=== PATIENT | female | born 1965 | race Caucasian/White ===

== ENCOUNTER 2016-05-04 16:53 | Inpatient (IN) | payer OTHER ==
--- NOTE | 2016-05-04 17:09 | CPEKG ---
Heart Rate: 75 RR Interval: 800 P-R Interval: 136 QRSD Interval: 84 QT Interval: 376 QTC Interval: 420 P [place]: 55 QRS [place]: 49 T Wave [place]: 42 EKG Severity - NORMAL ECG - EKG Impression: SINUS RHYTHM Electronically Signed By: Sonu Landin 04-May-2016 20:16:23
[2016-05-04] MEDS ORDERED: ONDANSETRON 4 MG/2 ML VIAL ONE (17:14)
--- NOTE | 2016-05-04 17:30 | EDPHY ---
H & P Stated Complaint: Abd pain,bloating,nausea since 3am Time Seen by Provider: 05/04/16 17:30 - Personal History LMP (Females 10-55): Now Current Tetanus Diphtheria and Acellular Pertussis (TDAP): Yes - Medical/Surgical History Other PMH: appy L oophrectomy (teratoma) - Social History Smoking Status: Never smoked Constitutional: Initial Vital Signs Temperature (C) 37.1 C 05/04/16 16:57 Heart Rate 94 05/04/16 16:57 Respiratory Rate 18 05/04/16 16:57 Blood Pressure 153/88 H 05/04/16 16:57 O2 Sat (%) 97 05/04/16 16:57 O2 Delivery Mode Room Air Allergies/Adverse Reactions: No Known Allergies Allergy (Verified 05/04/16 16:56) Home Medications: Medication Instructions Recorded NK [No Known Home Meds] 05/04/16 Medical Decision Making ED Course/Re-evaluation: CHIEF COMPLAINT: Nausea vomiting abdominal pain HISTORY OF PRESENT ILLNESS: 50-year-old female who ate pizza last night and feels like she might have had some bad pizza. 3:00 a.m. she got nauseated. 7: 00 a.m. she started vomiting consistently throughout the day now she is vomiting bile. She has some reflux and some pain in her upper abdomen where the abdominal muscles insert on her sternum and ribs. She has no other symptoms including no fevers or chills no diarrhea. She feels like the pain is related to her vomiting as when she moves around it exacerbates the symptoms. REVIEW OF SYSTEMS: A 10 point review of systems was performed and is negative with the exception of the elements mentioned in the history of present illness. PHYSICAL EXAM: HR, BP, O2 Sat, RR. Temp noted General Appearance: Alert, well hydrated, appropriate, and non-toxic appearing. Head: Atraumatic without scalp tenderness or obvious injury Eyes: Pupils equal, round, reactive to light and accommodation, EOMI, no trauma , no injection. Ears: Clear bilaterally, no perforation, normal landmarks Nose: Atraumatic, no rhinorrhea, clear. Throat: There is no erythema or exudates, no lesions, normal tonsils, mucus membranes moist. Neck: Supple, 2+ carotid upstroke, nontender, no lymphadenopathy. Respiratory: No retractions, no distress, no wheezes, and no accessory muscle use. Lungs are clear to auscultation bilaterally. Cardiovascular: Regular rate and rhythm, no murmurs, rubs, or gallops. Bilateral carotid, radial, dorsalis pedis, and posterior tibial pulses intact. Good capillary refill all extremities. Gastrointestinal: Abdomen is soft, mild tenderness along the abdominal muscle insertion of the lower ribs and sternum, non-distended, no masses, no rebound, no guarding, no peritoneal signs. Musculoskeletal: Normal active ROM of all extremities, atraumatic. Neurological: Alert, appropriate, and interactive. The patient has normal DTRs and non-focal cranial nerves, motor, sensory, and cerebellar exam. Skin: No rashes, good turgor, no nodules on palpation. Past medical history: remote hypertriglyceridemia Past surgical history: Cholecystectomy, appendectomy, left oophorectomy Family history: Noncontributory Social history: , does not abuse tobacco drugs or alcohol, accompanied by and son DIAGNOSTICS/PROCEDURES/CRITICAL CARE TIME: No images required based on my exam. The 12 lead EKG was interpreted by myself. See hard copy and/or "tracemaster" electronic copy for interpretation. Sinus mechanism no ischemia Study: Ultrasound of the: Abdomen Indication: Pain Results: US scan of the abdomen was obtained. The results of the study are no stone, dilated bile duct consistent with post-cholecystectomy. The study was read by the radiologist, Dr. Jacobo. I viewed the images myself on the PACS system. DIFFERENTIAL DIAGNOSIS: The differential diagnosis for the patient's abdominal pain included but was not limited to abdominal muscle pain, gastroenteritis, diverticulitis, hernia. MEDICAL DECISION MAKING: This patient has history and exam consistent with gastroenteritis versus some sort of food poisoning. She really just has abdominal pain on the insertion of her abdominal muscles on the sternum and the ribs and she also has some reflux which is causing her a little bit of esophageal burning and back pain. This patient is doing much better with Zofran and Dilaudid. We will give her IV fluids. Will do a p. o. trial. She does not require imaging at this time as she has had her gallbladder, appendix out and she does not have a surgical abdomen. Lipase elevated indicating pancreatitis. She tells me she has a remote history of hypertriglyceridemia, though her last lipid check was normal. Abdominal US ordered. 1851: Spoke with Dr. Wilhelm, hospitalist. She accepts admission. - Data Points Laboratory Results: Laboratory Results 05/04/16 17:20 05/04/16 17:20 05/04/16 17:20 WBC 16.76 H 10^3/uL (3.80-9.50) RBC 4.29 10^6/uL (4.18-5.33) Hgb 14.5 g/dL (12.6-16.3) Hct 35.4 L % (38.0-47.0) MCV 82.5 fL (81.5-99.8) MCH 33.8 pg (27.9-34.1) MCHC 41.0 H g/dL (32.4-36.7) RDW 13.2 % (11.5-15.2) Plt Count 143 L 10^3/uL (150-400) MPV 12.4 H fL (8.7-11.7) Neut % (Auto) 91.0 H % (39.3-74.2) Lymph % (Auto) 3.8 L % (15.0-45.0) [place] % (Auto) 4.3 L % (4.5-13.0) Eos % (Auto) 0.1 L % (0.6-7.6) Baso % (Auto) 0.2 L % (0.3-1.7) Nucleat RBC Rel Count 0.1 % (0.0-0.2) Absolute Neuts (auto) 15.26 H 10^3/uL (1.70-6.50) Absolute Lymphs (auto) 0.63 L 10^3/uL (1.00-3.00) Absolute Monos (auto) 0.72 10^3/uL (0.30-0.80) Absolute Eos (auto) 0.01 L 10^3/uL (0.03-0.40) Absolute Basos (auto) 0.04 10^3/uL (0.02-0.10) Absolute Nucleated RBC 0.02 H 10^3/uL (0-0.01) Immature Gran % 0.6 % (0.0-1.1) Immature Gran # 0.10 10^3/uL (0.00-0.10) RBC/WBC/PLT Morphology NORMAL (NORMAL) Platelet Estimate DECREASED L (ADEQ) Sodium 128 L mEq/L (134-144) Potassium 4.9 mEq/L (3.5-5.2) Chloride 99 mEq/L (97-110) Carbon Dioxide 11 L mEq/l (22-31) Anion Gap 18 mEq/L (8-16) BUN 9 mg/dL (7-23) Creatinine 0.6 mg/dL (0.6-1.0) Estimated GFR > 60 Glucose 114 H mg/dL (70-100) Calcium 8.5 mg/dL (8.5-10.4) Total Bilirubin 2.3 H mg/dL (0.1-1.4) Conjugated Bilirubin 0.7 H mg/dL (0.0-0.5) Unconjugated Bilirubin 1.6 H mg/dL (0.0-1.1) AST 49 H IU/L (14-46) ALT 29 IU/L (9-52) Alkaline Phosphatase 95 IU/L (38-126) Total Protein 7.4 g/dL (6.3-8.2) Albumin 3.2 L g/dL (3.5-5.0) Lipase 3551.0 H IU/L (23-300) Medications Given: Discontinued Medications Hydromorphone HCl (Dilaudid) 1 mg IVP EDNOW ONE Stop: 05/04/16 17:41 Last Admin: 05/04/16 18:56 Dose: 1 mg Sodium Chloride (Ns) 1,000 mls @ 0 mls/hr IV ONCE ONE PRN Reason: Wide Open Stop: 05/04/16 17:41 Last Admin: 05/04/16 18:35 Dose: 1,000 mls Sodium Chloride (Ns) 1,000 mls @ 0 mls/hr IV ONCE ONE PRN Reason: Wide Open Stop: 05/04/16 17:41 Last Admin: 05/04/16 17:45 Dose: 1,000 mls Famotidine/Sodium Chloride (Pepcid 20 Mg (Premix)) 50 mls @ 200 mls/hr IV EDNOW ONE Stop: 05/04/16 17:54 Last Admin: 05/04/16 18:00 Dose: 50 mls Ondansetron HCl (Zofran) 4 mg IVP EDNOW ONE Stop: 05/04/16 17:41 Last Admin: 05/04/16 17:45 Dose: 4 mg Departure - Departure Disposition: [facility] Inpatient Acute Clinical Impression: Pancreatitis Condition: Fair
[2016-05-04] MEDS ORDERED: HYDROmorphONE/DILAUDID 1 MG/ML SYR ONE (17:34)
[2016-05-04] MEDS ORDERED: HYDROmorphONE/DILAUDID 1 MG/ML SYR IVP ONE (17:40)
[2016-05-04] MEDS ORDERED: FAMOTIDINE 20 MG/NACL 50 ML IV ONE (17:40)
[2016-05-04] MEDS ORDERED: ONDANSETRON 4 MG/2 ML VIAL IVP ONE (17:40)
[2016-05-04] MEDS ORDERED: NS 1,000 ML IV ONE ×2 (17:40)
[2016-05-04 17:58] LABS: ALANINE AMINOTRANSFERASE 29 IU/L (9-52); ALBUMIN 3.2 g/dL (3.5-5.0); ALKALINE PHOSPHATASE 95 IU/L (38-126); ANION GAP 18 mEq/L (8-16); ASPARTATE AMINOTRANSFERASE 49 IU/L (14-46); BILIRUBIN,TOTAL 2.3 mg/dL (0.1-1.4); BILIRUBIN-CONJUGATED 0.7 mg/dL (0.0-0.5); BILIRUBIN-UNCONJUGATED 1.6 mg/dL (0.0-1.1); CALCIUM 8.5 mg/dL (8.5-10.4); CARBON DIOXIDE 11 mEq/l (22-31); CHLORIDE 99 mEq/L (97-110); CREATININE 0.6 mg/dL (0.6-1.0); GLOMERULAR FILTRATION RATE > 60; GLUCOSE 114 mg/dL (70-100); POTASSIUM 4.9 mEq/L (3.5-5.2); SODIUM 128 mEq/L (134-144); TOTAL PROTEIN 7.4 g/dL (6.3-8.2)
[2016-05-04 18:28] LABS: % IMMATURE GRANULYOCYTES 0.6 % (0.0-1.1); ABSOLUTE NRBC COUNT 0.02 10^3/uL (0-0.01); ADD DIFF? NO; ADD MORPH? YES; ADD SCAN? NO; ATYPICAL LYMPHOCYTE FLAG 0 (0-99); FRAGMENT RBC FLAG 0 (0-99); HEMATOCRIT 35.4 % (38.0-47.0); HEMOGLOBIN 14.5 g/dL (12.6-16.3); LEFT SHIFT FLG 0 (0-99); MEAN CELL HEMOGLOBIN 33.8 pg (27.9-34.1); MEAN CELL VOLUME 82.5 fL (81.5-99.8); MEAN PLATELET VOLUME 12.4 fL (8.7-11.7); NRBC-AUTO% 0.1 % (0.0-0.2); PLATELET CLUMPS FLAG 10 (0-99); PLATELET COUNT 143 10^3/uL (150-400); RED BLOOD CELL COUNT 4.29 10^6/uL (4.18-5.33); RED CELL DISTRIBUTION WIDTH 13.2 % (11.5-15.2)
[2016-05-04 18:36] LABS: LIPEMIA HEMOLYSIS FLAG 100 (0-99)
[2016-05-04 18:55] LABS: PLATELET ESTIMATE DECREASED (ADEQ)
[2016-05-04 19:16] LABS: HIGH DENSITY LIPOPROTEIN 34 mg/dL (40-85)
[2016-05-04] MEDS ORDERED: ACETAMINOPHEN 325 MG TAB PO PRN (19:42)
[2016-05-04] MEDS ORDERED: ONDANSETRON DISINTEGRATING 4 MG TAB PO PRN (19:42)
[2016-05-04 19:45] LABS: CHOLESTEROL 647 mg/dL (140-220); CHOLESTEROL/HDL RATIO 19.03 RATIO (1.00-4.44); NON-HIGH DENSITY LIPOPROTEIN 613 mg/dL (90-129)
[2016-05-04 19:46] LABS: TRIGLYCERIDE > 3000 mg/dL (35-135)
[2016-05-04 20:01] LABS: MAGNESIUM 1.2 mg/dL (1.6-2.3)
[2016-05-04] MEDS: ONDANSETRON 4 MG/2 ML VIAL IVP PRN (20:07)
--- NOTE | 2016-05-04 20:24 | US ---
Complete Abdominal Sonogram - May 04, 2016 Indication: Pancreatitis. Previous cholecystectomy. Findings: The enlarged liver, measuring 19.7 cm in the midaxillary line, has increased echogenicity a nd homogeneous echotexture. No sonographic mass or biliary dilation. The gallbladder is surgically absent. The visualized common bile duct is minimally dilated (7 to 8 mm ), which may be within normal limits for the postcholecystectomy state. No intraluminal shadowing sto sylvie. Portal vein is patent. The inferior vena cava is normal caliber. The abdominal aorta is normal calibe r. The kidneys are unremarkable with no hydronephrosis. The right kidney measures 10.4 cm in length x 5 x 4.7 cm axially. The left kidney measures 10.3 cm in length x 4.9 x 4.8 cm axially. No free fluid. The imaged portions of the pancreatic neck, head, and central body are normal. No jaclyn pancreatic fluid collection. Spleen is upper normal size measuring 12.7 x 10.8 x 6.1 cm (splenic inde x of 435). The pancreatic tail is obscured by bowel gas. Impression: 1. Minimal dilated common bile duct may be within normal limit for the postcholecystectomy state. No evidence of common bile duct stone. 2. Hepatic steatosis and mild hepatomegaly. 3. No free fluid. Comment: Results were discussed with Dr. Sonu Landin at 8:15 p.m. on May 04, 2016.
[2016-05-04] MEDS ORDERED: HYDROmorphONE/DILAUDID 1 MG/ML SYR IVP PRN (20:48)
[2016-05-04] MEDS ORDERED: MAGNESIUM SULF 2 GM/WATER 50 ML IV ONE (23:06)
[2016-05-04] MEDS: MAGNESIUM SULF 2 GM/WATER 50 ML IV SCH (23:29)
--- NOTE | 2016-05-05 00:04 | GHP ---
[f rep st] HISTORY AND PHYSICAL DATE OF ADMISSION: 05/04/2016 CHIEF COMPLAINT: Pancreatitis. HISTORY OF PRESENT ILLNESS: Patient is a 50-year-old female with no significant past medical history presenting with abdominal pain and vomiting since this morning. She ate pizza yesterday and felt an unsettled stomach, went to bed thinking symptoms would improve. She awoke this morning at 7 a.m. with nonbloody emesis approximately 6-7 times. She has had no diarrhea; actually, had a normal bowel movement yesterday. Denies fevers, chills, or sweats. No cough, no shortness of breath. Pain is crampy in nature and improved after emesis. Pain is currently 4/10. Denies dysuria. Has had intermittent headache. Reports having a history of hypertriglyceridemia. Has had her gallbladder removed. Recently in [place] over [place]. Denies eating anything out of the ordinary for her. REVIEW OF SYSTEMS: I completed a 10-point review of systems, negative except as noted in HPI. PAST MEDICAL HISTORY: None. PAST SURGICAL HISTORY: 2 vaginal births; cholecystectomy, age 28; appendectomy , June 2015; left ovary removed secondary to a teratoma. SOCIAL HISTORY: Lives with her . No alcohol, tobacco, or illicits. FAMILY HISTORY: Mother and sister with breast cancer. MEDICATIONS: Aspirin. ALLERGIES: No known drug allergies. PHYSICAL EXAM: VITAL SIGNS: Temperature 37, blood pressure 158/88, heart rate 90-101, respirations 18, 90% on room air, 94 on 2 L. General: Patient appears younger than stated age. Lying in bed fatigued, but no acute distress. HEENT: PERRLA, EOMI. Dry mucous membranes. Oropharynx clear. CV: Regular rate and rhythm. No murmurs, gallops, or rubs. LUNGS: Clear to auscultation. No crackles or wheezes. ABDOMEN: Diffusely tender throughout, specifically in epigastrium. No rebound or guarding. Quiet bowel sounds throughout. : No suprapubic or CVA tenderness. MUSCULOSKELETAL: 5/5 upper/lower extremity strength. NEURO: /12 intact. No focal deficits. PSYCH: Alert and oriented x3. LABS: WBC 16, hemoglobin 14, hematocrit 35, platelets 143. Sodium was 128, potassium 4.9, chloride 99, carbon dioxide 11, gap 18, creatinine 0.6, glucose 114, total bilirubin 2.3, conjugated bilirubin 0.7, unconjugated 1.6, AST 49, ALT 29, albumin 3.2. Triglycerides greater than 3000. Cholesterol 647, non-HDL 613, HDL 34, lipase 3551, phos 3.1, magnesium 1.2. Abdominal ultrasound: Minimal dilated common bile duct may be within normal limits for postcholecystectomy. No evidence of common bile duct stone. Hepatic steatosis and mild hepatomegaly. No free fluid. EKG personally reviewed by me. Normal sinus rhythm. No ST elevation depression. ASSESSMENT AND PLAN: 1. Acute abdominal pain: secondary to pancreatitis with an elevated lipase greater than 3000. No evidence of ascites on ultrasound. 2. Acute pancreatitis: due to hypertriglyceridemia: Triglycerides greater than 3000, cholesterol 647. Patient with a history of cholecystectomy. No evidence of stones on ultrasound. Will treat supportively with IV fluids, IV opioids, and IV antiemetics. Patient will need treatment with gemfibrozil and statin, once tolerating p.o. intake. Will also evaluate TSH and urinalysis, as thyroid disease and nephrotic syndrome can be associated with triglyceridemia. Will discuss case with Gastroenterology in the morning. 3. Hypomagnesium: Replete. 4. Hypovolemic hyponatremia secondary to emesis and decreased p.o. intake: Will give IV fluids. 5. Metabolic anion gap acidosis, likely secondary to starvation ketoacidosis: We are giving IV fluids. 6. Hyperbilirubinemia: Ultrasound without evidence of overt stones. 7. Leukocytosis, likely secondary to stress inflammation, given acute process: There is no evidence of abscess or free fluid on ultrasound. Will also check a UA, provide IV fluids, and repeat in the morning. 8. Diet: NPO. 9. DVT prophylaxis: Low molecular weight heparin. DISPOSITION: Patient warrants inpatient admission, given acute abdominal pain secondary to pancreatitis, requiring IV fluids, opioids, and antiemetics. /[id number]/MODL MTDD
[2016-05-05] MEDS: MAGNESIUM SULF 2 GM/WATER 50 ML IV SCH (00:55)
[2016-05-05] MEDS: ONDANSETRON 4 MG/2 ML VIAL IVP PRN ×5 (01:11→20:21)
[2016-05-05] MEDS: HYDROmorphONE/DILAUDID 1 MG/ML SYR IVP PRN ×9 (01:22→23:40)
[2016-05-05 03:51] LABS: COLOR YELLOW; LEUKOCYTE ESTERASE,URINE NEGATIVE (NEGATIVE); NITRITE,URINE POSITIVE (NEGATIVE)
[2016-05-05 03:59] LABS: BACTERIA 1+ /hpf (NONE SEEN); MUCUS 1+ /lpf (NONE-1+)
[2016-05-05 06:44] LABS: ALANINE AMINOTRANSFERASE 30 IU/L (9-52); ALBUMIN 2.8 g/dL (3.5-5.0); ALKALINE PHOSPHATASE 75 IU/L (38-126); ANION GAP 15 mEq/L (8-16); ASPARTATE AMINOTRANSFERASE 23 IU/L (14-46); BILIRUBIN,TOTAL 1.6 mg/dL (0.1-1.4); CALCIUM 6.4 mg/dL (8.5-10.4); CARBON DIOXIDE 14 mEq/l (22-31); CHLORIDE 102 mEq/L (97-110); CREATININE 0.7 mg/dL (0.6-1.0); GLOMERULAR FILTRATION RATE > 60; GLUCOSE 154 mg/dL (70-100); POTASSIUM 3.7 mEq/L (3.5-5.2); SODIUM 131 mEq/L (134-144); TOTAL PROTEIN 5.7 g/dL (6.3-8.2)
[2016-05-05] MEDS: D5W NS 1,000 ML IV SCH ×2 (08:24→16:21)
[2016-05-05 08:31] LABS: HEMATOCRIT 32.1 % (38.0-47.0); HEMOGLOBIN 11.6 g/dL (12.6-16.3); MEAN CELL HEMOGLOBIN 30.1 pg (27.9-34.1); MEAN CELL HEMOGLOBIN CONCENTR. 36.1 g/dL (32.4-36.7); MEAN CELL VOLUME 83.4 fL (81.5-99.8); RED BLOOD CELL COUNT 3.85 10^6/uL (4.18-5.33); RED CELL DISTRIBUTION WIDTH 13.4 % (11.5-15.2)
[2016-05-05] MEDS ORDERED: PROTOCOL K PHOSPHATE 1 DOSE IV PRN (09:29)
[2016-05-05] MEDS ORDERED: PROTOCOL MAGNESIUM 1 DOSE IV PRN (09:55)
[2016-05-05] MEDS ORDERED: D50W 25 GM/50 ML SYR IVP PRN (09:56)
[2016-05-05] MEDS: GEMFIBROZIL 600 MG TAB PO SCH ×2 (10:52→18:00)
[2016-05-05] MEDS: INSULIN REGULAR HUMAN 100 UNIT/ML SC SCH ×3 (12:40→21:18)
[2016-05-05] MEDS: HEPARIN 5,000 UNIT/0.5 ML SYR SC SCH ×2 (13:49→21:22)
--- NOTE | 2016-05-05 14:39 | HOSPPROG ---
Hospitalist Progress Note Assessment/Plan: * Acute pancreatitis due to hypertriglyceridemia -still lots of pain - advance only to sips/chips -increase IV Dilaudid * Hypertriglyceridemia -apheresis/TPE recommended for severe pancreatitis -no evidence for end organ damage - but consider TPE if worsens -also evidence for benefit from insulin/glucose to decrease TG -D5 + insulin SS -some evidence for use of heparin -SQ heparin -goal to bring TG < 500 acutely -start gemfibrozil -statin intolerant - severe myalgia (has tried 3 different statins in past) -recommend endocrinology follow-up as outpatient * SIRS due to pancreatitis - leukocytosis/tachycardia -O2 requirement increasing - check CXR -suspect poor inspiration due to abdominal pain Subjective: Pain is better but with severe LUQ persisting. Can't take deep breaths unless she gets IV dilaudid. No interest in taking PO Objective: Vital Signs Temp Pulse Resp BP Pulse Ox 37.2 C 94 18 106/66 90 L 05/05/16 08:18 05/05/16 12:23 05/05/16 12:23 05/05/16 12:23 05/05/16 12:23 Laboratory Results 05/05/16 04:58 05/05/16 04:58 ABD US: negative - Physical Exam Constitutional: no apparent distress, appears nourished, not in pain Cardiovascular: regular rate and rhythym, no murmur, rub, or gallop Respiratory: no respiratory distress, no rales or rhonchi, clear to auscultation Gastrointestinal: tenderness, distension, No ascites, No guarding, No rebound Skin: no rashes or abrasions, no fluctuance, no induration Neurologic: AAOx3, sensation intact bilaterally Psychiatric: interacting appropriately, not anxious, not encephalopathic, thought process linear ICD10 Worksheet Patient Problems: Problems Problem Status Diagnosed Pancreatitis Acute
[2016-05-06] MEDS: D5W NS 1,000 ML IV SCH ×3 (02:48→21:02)
[2016-05-06] MEDS: HYDROmorphONE/DILAUDID 1 MG/ML SYR IVP PRN ×9 (02:49→22:08)
[2016-05-06] MEDS: ONDANSETRON 4 MG/2 ML VIAL IVP PRN ×5 (02:49→19:53)
[2016-05-06 05:05] LABS: % IMMATURE GRANULYOCYTES 0.9 % (0.0-1.1); ABSOLUTE IMMATURE GRANULOCYTES 0.11 10^3/uL (0.00-0.10); ADD DIFF? NO; ADD MORPH? NO; ADD SCAN? NO; ATYPICAL LYMPHOCYTE FLAG 0 (0-99); FRAGMENT RBC FLAG 0 (0-99); HEMATOCRIT 33.6 % (38.0-47.0); HEMOGLOBIN 11.9 g/dL (12.6-16.3); LEFT SHIFT FLG 50 (0-99); LIPEMIA HEMOLYSIS FLAG 90 (0-99); MEAN CELL HEMOGLOBIN 30.5 pg (27.9-34.1); MEAN CELL HEMOGLOBIN CONCENTR. 35.4 g/dL (32.4-36.7); MEAN CELL VOLUME 86.2 fL (81.5-99.8); MEAN PLATELET VOLUME 11.1 fL (8.7-11.7); PLATELET CLUMPS FLAG 0 (0-99); PLATELET COUNT 176 10^3/uL (150-400)
[2016-05-06 05:17] LABS: ALANINE AMINOTRANSFERASE 27 IU/L (9-52); ALBUMIN 2.5 g/dL (3.5-5.0); ALKALINE PHOSPHATASE 66 IU/L (38-126); ANION GAP 6 mEq/L (8-16); ASPARTATE AMINOTRANSFERASE 27 IU/L (14-46); BILIRUBIN,TOTAL 1.8 mg/dL (0.1-1.4); BILIRUBIN-CONJUGATED 0.5 mg/dL (0.0-0.5); BILIRUBIN-UNCONJUGATED 1.3 mg/dL (0.0-1.1); CARBON DIOXIDE 20 mEq/l (22-31); CHLORIDE 106 mEq/L (97-110); CREATININE 0.7 mg/dL (0.6-1.0); GLOMERULAR FILTRATION RATE > 60; GLUCOSE 145 mg/dL (70-100); HIGH DENSITY LIPOPROTEIN 41 mg/dL (40-85); MAGNESIUM 2.3 mg/dL (1.6-2.3); POTASSIUM 3.9 mEq/L (3.5-5.2); SODIUM 132 mEq/L (134-144); TOTAL PROTEIN 5.3 g/dL (6.3-8.2)
[2016-05-06] MEDS: HEPARIN 5,000 UNIT/0.5 ML SYR SC SCH ×3 (06:33→22:06)
[2016-05-06 06:54] LABS: CHOLESTEROL 567 mg/dL (140-220); CHOLESTEROL/HDL RATIO 13.83 RATIO (1.00-4.44); NON-HIGH DENSITY LIPOPROTEIN 526 mg/dL (90-129); TRIGLYCERIDE 1560 mg/dL (35-135)
[2016-05-06 06:57] LABS: CALCIUM 5.7 mg/dL (8.5-10.4)
[2016-05-06] MEDS: INSULIN REGULAR HUMAN 100 UNIT/ML SC SCH (08:00)
[2016-05-06] MEDS: GEMFIBROZIL 600 MG TAB PO SCH ×2 (08:01→17:35)
--- NOTE | 2016-05-06 08:13 | DX ---
Portable chest x-ray 0620 hours. History: Hypoxia. Findings: There is poor inspiration with compressive changes at the lung bases left side more than ri ght. Rule out superimposed infiltrate/pneumonia or dependent edema. The mid and upper lungs are relat ively clear. There is no pneumothorax or significant effusion. Heart size is upper limits of normal. Pulmonary vasculature is not significant engorged. Osseous structures appear to be intact. Impression: 1. Poor inspiration with compressive changes at the lung bases left side more than right. Rule out fernando perimposed consolidation/pneumonia especially at the left lung base. Rule out dependent edema possibl y from fluid overload.
[2016-05-06] MEDS ORDERED: CALCIUM GLUCONATE 2 GM in D5W 50 ML IV ONE (08:14)
[2016-05-06] MEDS ORDERED: PROTOCOL CALCIUM 1 DOSE IV PRN (08:14)
[2016-05-06 08:38] LABS: IONIZED CALCIUM 0.85 MMOL/L (1.12-1.30)
[2016-05-06] MEDS ORDERED: INSULIN REGULAR HUMAN 100 UNIT in NS 100 ML IV SCH (09:00)
--- NOTE | 2016-05-06 09:07 | CPEKG ---
Heart Rate: 104 RR Interval: 577 P-R Interval: 144 QRSD Interval: 88 QT Interval: 344 QTC Interval: 453 P [place]: 43 QRS [place]: 32 T Wave [place]: 15 EKG Severity - OTHERWISE NORMAL ECG - EKG Impression: SINUS TACHYCARDIA Electronically Signed By: Eliel Estrada 06-May-2016 09:09:02
--- NOTE | 2016-05-06 09:18 | HOSPPROG ---
Hospitalist Progress Note Assessment/Plan: ASSESSMENT/PLAN: # acute pancreatitis due to hypertriglyceridemia - supportive care including IV fluids, pain control, keep NPO # critical hypocalcemia - repleting aggressively; fortunately she is not symptomatic - check ionized calcium - also very low - placed on telemetry, check ECG - personally reviewed, no QT prolongation - will be more aggressive treating pancreatitis - check Q4H, check PTH - if she becomes symptomatic, will strongly consider apheresis # severe hypertriglyceridemia - discussed with Dr Escalona - start IV insulin - continue gemfibrozil, start IV insulin (will need to move to the ICU), continue D5 normal saline - continue subcu heparin # hypoxia: Due to abdominal distention, decreased diaphragmatic excursion - follow closely SUBJECTIVE: Ongoing abdominal pain; notified of critical hypocalcemia OBJECTIVE: Vitals reviewed Comfortable, no acute distress Regular rate and rhythm, no murmurs rubs or gallops No respiratory distress, lungs clear to auscultation bilaterally; no wheezes rales or rhonchi Abdomen normal bowel sounds, soft, moderate to severely tender to palpation in the left upper quadrant Negative Chvostek's sign LABORATORY DATA: Triglycerides 1500; calcium 5.7; albumin 2.5 IMAGING: Chest x-ray with compressive atelectasis MICROBIOLOGY: None GOVERNMENT PROFESSOR: - place on monitor Objective: Vital Signs Temp Pulse Resp BP Pulse Ox 37.4 C 100 16 108/62 92 05/06/16 07:29 05/06/16 07:29 05/06/16 07:29 05/06/16 07:29 05/06/16 07:29 Laboratory Results 05/06/16 04:47 05/06/16 04:47 05/05/16 05/06/16 05/07/16 05:59 05:59 05:59 Output Total 300 Balance -300 ICD10 Worksheet Patient Problems: Problems Problem Status Diagnosed Pancreatitis Acute
[2016-05-06 09:19] LABS: PTH INTACT NO MINERALS 344.8 pg/ml (10.8-79.4)
--- NOTE | 2016-05-06 11:52 | GCON ---
[f rep st] [facility]SULTATION [facility]. DATE OF CONSULTATION: 05/06/2016 REASON FOR ADMISSION: Pancreatitis and severe hypocalcemia. HISTORY OF PRESENT ILLNESS: Ms. Engel is an extremely pleasant 50-year-old female with a past medical history of hypertriglyceridemia. She presented to the emergency room and was admitted on 05/04/2016, with abdominal pain and vomiting. She was diagnosed with pancreatitis and admitted. HOSPITAL COURSE: Over the course of her hospitalization, she made some improvement. Her pain is bet ter-controlled. However, she is found to be severely hypocalcemic. She was subsequently transferred to the Intensive Care Unit. Currently, she is resting comfortably. She denies any chest pain, pleuritic-type chest pain or angin a equivalent. No cough or production of sputum. No fever or night sweats. Her abdominal pain is ag ain somewhat controlled. PAST MEDICAL HISTORY: Significant for hypertriglyceridemia. ALLERGIES: None known to medications. SOCIAL HISTORY: Lifelong never smoker. No alcohol use. No illicit drugs. She has good family supp ort. MEDICATIONS: Aspirin. PHYSICAL EXAM: VITAL SIGNS: Blood pressure 108/62, pulse 100, respirations 16, temperature 37.4, ox ygen saturation 92% on 3 L. GENERAL: She is a mildly overweight 50-year-old female who is resting comfortably and in no acute distress. HEENT: Eyes are [place] EOMI. Throat shows no erythema o r tonsillar hypertrophy. NECK: Supple. No cervical adenopathy. HEART: Regular rate and rhythm wi thout murmurs, rubs, gallops. LUNGS: Clear to auscultation. No wheeze or rhonchi. ABDOMEN: Soft, mildly tender. Bowel sounds are present. EXTREMITIES: No clubbing, cyanosis, or edema. LABORATORIES: White count 12.6, hemoglobin 11, hematocrit 33, platelet count is 176. Sodium 132, po tassium 3.9, chloride 106, CO2 20. BUN 9, creatinine 0.7, glucose 145, calcium 5.7, phosphorus 2.1. AST and ALT are 27 each. Triglyceride level is 1560, which is improved. PTH is 344. Urinalysis: p H 5, specific gravity 1.020. IMPRESSION: 1. Hypertriglyceridemia. 2. Acute pancreatitis due to the hypertriglyceridemia. 3. Severe hypocalcemia. 4. Mild dyspnea. RECOMMENDATIONS: 1. I agree with transfer to the Intensive Care Unit. 2. Follow calcium closely. 3. We will start IV insulin. 4. DVT and PE prophylaxis. 5. Stress ulcer prophylaxis. 6. Adequate pain control. /[id number]/MODL
[2016-05-06] MEDS ORDERED: D10W 1,000 ML IV SCH (12:00)
[2016-05-06] MEDS ORDERED: K PHOS 10 MMOL in D5W 250 ML IV ONE (12:00)
[2016-05-06 12:33] LABS: IONIZED CALCIUM 1.01 MMOL/L (1.12-1.30)
[2016-05-06] MEDS ORDERED: CALCIUM GLUCONATE 50 ML IV ONE ×3 (13:52→20:27)
[2016-05-06 16:00] LABS: IONIZED CALCIUM 1.03 MMOL/L (1.12-1.30)
--- NOTE | 2016-05-06 18:14 | GCON ---
[f rep st] CONSULTATION ENDOCRINOLOGY CONSULTATION REFERRING PHYSICIAN: Zain Munguia MD REASON FOR CONSULTATION: Triglyceride-induced pancreatitis. HISTORY OF PRESENT ILLNESS: Ms. Engel is a 50-year-old woman with a history of high triglycerides, who was admitted 2 days ago with acute pancreatitis. She reports feeling well in general with good energy and stable weight. She has a history of high triglycerides as high as 1200 in the past. She was treated with several statin medications, which were discontinued because of muscle pain. She also took Lovaza for a time, which was discontinued because of lymphedema. More recently, she has been able to control it with diet and reports triglyceride level is approximately 300. She does state that over the holidays she was not stringent with her diet and ate more simple carbohydrates and fatty foods. The night before admission, she had pizza and later that night developed nausea and vomiting. Ultimately, she developed epigastric pain radiating up into her sternum and sought emergency care. She described the pain as 10/10. Upon admission, she was found to have acute pancreatitis with lipase 3551 and triglycerides above 3000. Her initial calcium level was 8.5 with albumin 3.2, and she has had normal creatinine 0.7 and normal thyroid function, TSH 0.501, during this admission. Glucose levels have ranged 100-190 on fingerstick. She has been treated with n.p.o. aside from ice chips and with pain medication, and currently rates pain as a level 5/10. She has not had recent nausea or vomiting. Earlier today, she was found to have serum calcium 5.7 width albumin 2.5. She has been treated with IV calcium and ionized calcium has increased from 0.85 up to 1.03 millimoles/L. She does not report low calcium symptoms currently. She has never had diagnosis of diabetes. She does not drink alcohol. She has not had prior thyroid disease. She has not had prior cardiovascular disease. She has not a history of xanthomas/xanthomata. PAST MEDICAL HISTORY: 1. Hypertriglyceridemia. 2. Ovarian teratoma, unilateral oophorectomy. ALLERGIES: Lovaza as above. ADMISSION MEDICATIONS: Aspirin 81 mg occasionally. FAMILY HISTORY: Her brother has significant hypertriglyceridemia. SOCIAL HISTORY: She has a significant other and 2 children. No grandchildren. 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 She does not smoke or use alcoholic beverages. REVIEW OF SYSTEMS: As per HPI. Otherwise, review of systems negative. PHYSICAL EXAM: VITAL SIGNS: Temperature 36.5, heart rate 96, respiratory rate 16, blood pressure 112/64. GENERAL: She appears well and answers questions appropriately. HEENT: Extraocular movements are intact. There is no lid lag. NECK: The thyroid gland is normal sized to anterior palpation. The neck is supple. LUNGS: Clear to auscultation. HEART: Regular. ABDOMEN: Slightly tender and distended with positive bowel sounds. EXTREMITIES: Trace edema. Distal pulses are excellent. NEUROLOGIC: Mood and affect are normal. Judgement is normal. SKIN: Warm and dry. There are no stigmata of hypercholesterolemia or hypertriglyceridemia. LABS: As above. Hospital labs reviewed. IMPRESSION: 1. Pancreatitis. 2. Hypertriglyceridemia. 3. Hypocalcemia. She presents with pancreatitis, presumably caused by hypertriglyceridemia. She had very high triglycerides on admission, which have decreased but still remain above 500. She appears to be recovering well from her pancreatitis. She currently looks quite comfortable and is not toxic. She has not demonstrated evidence of end-organ dysfunction, but she has had prominent hypocalcemia with corrected calcium levels as low as 6.9. Those have improved with correction. We reviewed that severe hypertriglyceridemia usually arises in people with a genetic predisposition, then coupled with a second event, such as development of diabetes, significant alcohol intake, hypothyroidism, etc. For her, there is no clear secondary event other than perhaps dietary indiscretion around the holidays. I would like to check hemoglobin A1c. For her, the acute goal will be to lower triglyceride levels below 500. She is now receiving gemfibrozil, subcutaneous heparin, and IV insulin. She has not had prominent hypoglycemia, so if needed there is room to increase the rate of insulin infusion, currently 1 unit/hr, and then increase the rate of D5 infusion if needed to avoid hypoglycemia. I think we can check triglycerides in the morning and reassess. As she does appear to be clinically quite well, I do not think there is an urgent need to explore aphaeresis or plasma exchange at this point, but those are certainly options if she has clinical deterioration. Hypocalcemia is almost certainly the result of the pancreatitis and will resolve as her pancreatitis resolves. Ok to continue calcium replacement as needed. RECOMMENDATIONS: 1. Continue IV insulin, gemfibrozil. 2. N.p.o. Start low-fat diet when she is able to eat. 3. Check hemoglobin A1c, triglycerides, calcium in the morning. 4. She will need Endocrinology followup after discharge. Thank you for this consultation. /[id number]/MODL MTDD
[2016-05-06 20:09] LABS: IONIZED CALCIUM 0.99 MMOL/L (1.12-1.30)
[2016-05-07] MEDS: ONDANSETRON 4 MG/2 ML VIAL IVP PRN ×6 (00:19→21:23)
[2016-05-07] MEDS: HYDROmorphONE/DILAUDID 1 MG/ML SYR IVP PRN ×9 (00:19→21:23)
[2016-05-07 00:38] LABS: IONIZED CALCIUM 1.03 MMOL/L (1.12-1.30)
[2016-05-07 00:44] LABS: POTASSIUM 3.9 mEq/L (3.5-5.2)
[2016-05-07] MEDS ORDERED: CALCIUM GLUCONATE 50 ML IV ONE ×4 (00:51→15:16)
[2016-05-07] MEDS: HEPARIN 5,000 UNIT/0.5 ML SYR SC SCH ×3 (05:03→21:30)
[2016-05-07] MEDS: D5W NS 1,000 ML IV SCH ×3 (05:03→20:19)
[2016-05-07 05:05] LABS: IONIZED CALCIUM 1.01 MMOL/L (1.12-1.30)
[2016-05-07 05:29] LABS: % IMMATURE GRANULYOCYTES 0.7 % (0.0-1.1); ABSOLUTE IMMATURE GRANULOCYTES 0.07 10^3/uL (0.00-0.10); ADD DIFF? NO; ADD MORPH? NO; ADD SCAN? NO; ATYPICAL LYMPHOCYTE FLAG 0 (0-99); FRAGMENT RBC FLAG 0 (0-99); HEMATOCRIT 31.9 % (38.0-47.0); HEMOGLOBIN 10.8 g/dL (12.6-16.3); LEFT SHIFT FLG 10 (0-99); LIPEMIA HEMOLYSIS FLAG 90 (0-99); MEAN CELL HEMOGLOBIN 29.3 pg (27.9-34.1); MEAN CELL HEMOGLOBIN CONCENTR. 33.9 g/dL (32.4-36.7); MEAN CELL VOLUME 86.4 fL (81.5-99.8); MEAN PLATELET VOLUME 11.2 fL (8.7-11.7); PLATELET CLUMPS FLAG 0 (0-99); PLATELET COUNT 164 10^3/uL (150-400); RED BLOOD CELL COUNT 3.69 10^6/uL (4.18-5.33); RED CELL DISTRIBUTION WIDTH 14.4 % (11.5-15.2)
[2016-05-07 05:40] LABS: ALANINE AMINOTRANSFERASE 30 IU/L (9-52); ALBUMIN 2.5 g/dL (3.5-5.0); ALKALINE PHOSPHATASE 84 IU/L (38-126); ANION GAP 7 mEq/L (8-16); ASPARTATE AMINOTRANSFERASE 15 IU/L (14-46); BILIRUBIN,TOTAL 1.7 mg/dL (0.1-1.4); CALCIUM 7.1 mg/dL (8.5-10.4); CARBON DIOXIDE 23 mEq/l (22-31); CHLORIDE 105 mEq/L (97-110); CREATININE 0.7 mg/dL (0.6-1.0); GLOMERULAR FILTRATION RATE > 60; GLUCOSE 116 mg/dL (70-100); HIGH DENSITY LIPOPROTEIN 42 mg/dL (40-85); MAGNESIUM 2.1 mg/dL (1.6-2.3); POTASSIUM 3.8 mEq/L (3.5-5.2); SODIUM 135 mEq/L (134-144)
[2016-05-07 05:50] LABS: CHOLESTEROL 458 mg/dL (140-220); NON-HIGH DENSITY LIPOPROTEIN 416 mg/dL (90-129); TRIGLYCERIDE 1031 mg/dL (35-135)
[2016-05-07] MEDS: GEMFIBROZIL 600 MG TAB PO SCH ×2 (06:46→17:08)
[2016-05-07 10:49] LABS: IONIZED CALCIUM 1.12 MMOL/L (1.12-1.30)
[2016-05-07 11:48] LABS: HEMOGLOBIN A1C 5.5 % (4.0-6.0)
[2016-05-07] MEDS ORDERED: K PHOS 10 MMOL in D5W 250 ML IV ONE (12:00)
--- NOTE | 2016-05-07 13:25 | HOSPPROG ---
Hospitalist Progress Note Assessment/Plan: ASSESSMENT/PLAN: # acute pancreatitis due to hypertriglyceridemia - possibly advance diet tomorrow - supportive care including IV fluids, IV narcotics, keep NPO # critical hypocalcemia - resolved with repletion # severe hypertriglyceridemia - better today; intolerant of statins - continue IV insulin, gemfibrozil, D5 normal saline, subcu heparin # hypoxia: Due to abdominal distention, decreased diaphragmatic excursion - improving SUBJECTIVE: Abdominal pain still present however better today OBJECTIVE: Vitals reviewed Comfortable, no acute distress Regular rate and rhythm, no murmurs rubs or gallops No respiratory distress, lungs clear to auscultation bilaterally; no wheezes rales or rhonchi Abdomen normal bowel sounds, soft, moderate to severely tender to palpation in the left upper quadrant LABORATORY DATA: Triglycerides improving, calcium better IMAGING: MICROBIOLOGY: None Objective: Vital Signs Temp Pulse Resp BP Pulse Ox 37.1 C 91 16 105/58 L 90 L 05/07/16 10:00 05/07/16 10:00 05/07/16 10:00 05/07/16 10:00 05/07/16 10:00 Laboratory Results 05/07/16 04:57 05/07/16 04:57 05/06/16 05/07/16 05/08/16 05:59 05:59 05:59 Intake Total 3401.6 Output Total 300 Balance -300 3401.6 ICD10 Worksheet Patient Problems: Problems Problem Status Diagnosed Pancreatitis Acute
[2016-05-07 14:33] LABS: IONIZED CALCIUM 1.02 MMOL/L (1.12-1.30)
[2016-05-07 18:54] LABS: IONIZED CALCIUM 1.15 MMOL/L (1.12-1.30)
[2016-05-07] MEDS: FAMOTIDINE 20 MG/NACL 50 ML IV SCH (21:30)
[2016-05-08] MEDS: HYDROmorphONE/DILAUDID 1 MG/ML SYR IVP PRN ×6 (00:12→20:06)
[2016-05-08 00:16] LABS: IONIZED CALCIUM 1.12 MMOL/L (1.12-1.30)
[2016-05-08] MEDS ORDERED: CALCIUM GLUCONATE 50 ML IV ONE ×3 (01:48→15:34)
[2016-05-08] MEDS: ONDANSETRON 4 MG/2 ML VIAL IVP PRN ×2 (02:20→08:19)
[2016-05-08] MEDS: HEPARIN 5,000 UNIT/0.5 ML SYR SC SCH ×3 (06:33→21:16)
[2016-05-08] MEDS: D5W NS 1,000 ML IV SCH ×2 (06:34→18:23)
[2016-05-08 08:24] LABS: IONIZED CALCIUM 1.05 MMOL/L (1.12-1.30)
[2016-05-08] MEDS: GEMFIBROZIL 600 MG TAB PO SCH ×2 (08:27→18:24)
[2016-05-08] MEDS: FAMOTIDINE 20 MG/NACL 50 ML IV SCH ×2 (08:28→21:15)
[2016-05-08 08:46] LABS: ANION GAP 6 mEq/L (8-16); CALCIUM 7.5 mg/dL (8.5-10.4); CARBON DIOXIDE 24 mEq/l (22-31); CHLORIDE 105 mEq/L (97-110); CREATININE 0.7 mg/dL (0.6-1.0); GLOMERULAR FILTRATION RATE > 60; GLUCOSE 90 mg/dL (70-100); MAGNESIUM 1.9 mg/dL (1.6-2.3); POTASSIUM 3.6 mEq/L (3.5-5.2); SODIUM 135 mEq/L (134-144)
[2016-05-08 09:01] LABS: TRIGLYCERIDE 778 mg/dL (35-135)
--- NOTE | 2016-05-08 09:35 | HOSPPROG ---
Hospitalist Progress Note Assessment/Plan: ASSESSMENT/PLAN: # acute pancreatitis due to hypertriglyceridemia - still quite severe today - supportive care including IV fluids, IV narcotics, keep NPO - attempt p.o. narcotics but unclear if this will work # critical hypocalcemia - resolved with repletion - continue following this closely # severe hypertriglyceridemia - better today; intolerant of statins - continue IV insulin, gemfibrozil, D5 normal saline, subcu heparin # hypoxia: Due to abdominal distention, decreased diaphragmatic excursion - improving SUBJECTIVE: Ongoing abdominal pain, still requiring IV narcotics OBJECTIVE: Vitals reviewed Comfortable, no acute distress Regular rate and rhythm, no murmurs rubs or gallops No respiratory distress, lungs clear to auscultation bilaterally; no wheezes rales or rhonchi Abdomen normal bowel sounds, soft, moderately tender to palpation in the left upper quadrant LABORATORY DATA: Triglycerides improving, calcium better - still being repleted IMAGING: MICROBIOLOGY: None Objective: Vital Signs Temp Pulse Resp BP Pulse Ox 36.8 C 93 24 H 105/87 H 93 05/08/16 08:00 05/08/16 08:00 05/08/16 08:00 05/08/16 08:00 05/08/16 08:00 Laboratory Results 05/07/16 04:57 05/08/16 08:21 05/07/16 05/08/16 05/09/16 05:59 05:59 05:59 Intake Total 3401.6 3478 Output Total 4 Balance 3401.6 3474 ICD10 Worksheet Patient Problems: Problems Problem Status Diagnosed Pancreatitis Acute
[2016-05-08] MEDS: HYDROmorphONE/DILAUDID 2 MG TAB PO PRN ×2 (13:33→17:11)
[2016-05-08 14:10] LABS: IONIZED CALCIUM 1.11 MMOL/L (1.12-1.30)
[2016-05-09] MEDS: HYDROmorphONE/DILAUDID 1 MG/ML SYR IVP PRN ×3 (00:12→22:49)
[2016-05-09] MEDS: HEPARIN 5,000 UNIT/0.5 ML SYR SC SCH ×3 (06:31→22:14)
[2016-05-09] MEDS: HYDROmorphONE/DILAUDID 2 MG TAB PO PRN ×6 (06:31→18:34)
[2016-05-09] MEDS: SODIUM CL NASAL 45 ML BTL EACHNARE PRN ×2 (06:37→10:09)
[2016-05-09 06:57] LABS: IONIZED CALCIUM 1.15 MMOL/L (1.12-1.30)
[2016-05-09 07:18] LABS: ANION GAP 7 mEq/L (8-16); CALCIUM 7.5 mg/dL (8.5-10.4); CARBON DIOXIDE 26 mEq/l (22-31); CHLORIDE 104 mEq/L (97-110); CREATININE 0.6 mg/dL (0.6-1.0); GLOMERULAR FILTRATION RATE > 60; GLUCOSE 109 mg/dL (70-100); POTASSIUM 3.5 mEq/L (3.5-5.2); SODIUM 137 mEq/L (134-144)
[2016-05-09 07:48] LABS: TRIGLYCERIDE 644 mg/dL (35-135)
[2016-05-09] MEDS: FAMOTIDINE 20 MG/NACL 50 ML IV SCH ×2 (09:59→22:14)
[2016-05-09] MEDS: GEMFIBROZIL 600 MG TAB PO SCH ×2 (10:07→17:59)
--- NOTE | 2016-05-09 10:22 | HOSPPROG ---
Hospitalist Progress Note Assessment/Plan: ASSESSMENT/PLAN: # acute pancreatitis due to hypertriglyceridemia - very slow improvement - supportive care including IV fluids, IV narcotics, will advance to clears today - cont p.o. narcotics # critical hypocalcemia - resolved with repletion - continue following this closely # severe hypertriglyceridemia - better today; intolerant of statins - stop IV insulin, start SQ insulin - cont gemfibrozil, subcu heparin - goal < 500 # hypoxia: Due to abdominal distention, decreased diaphragmatic excursion - improving SUBJECTIVE: abd pain is slowly improving; hungry today OBJECTIVE: Vitals reviewed Comfortable, no acute distress Regular rate and rhythm, no murmurs rubs or gallops No respiratory distress, lungs clear to auscultation bilaterally; no wheezes rales or rhonchi Abdomen normal bowel sounds, soft, moderately tender to palpation in the left upper quadrant LABORATORY DATA: Triglycerides improving, calcium better IMAGING: MICROBIOLOGY: None Objective: Vital Signs Temp Pulse Resp BP Pulse Ox 37.3 C 88 16 123/72 H 97 05/09/16 04:00 05/09/16 06:00 05/09/16 06:00 05/09/16 04:00 05/09/16 06:00 Laboratory Results 05/07/16 04:57 05/09/16 06:45 05/08/16 05/09/16 05/10/16 05:59 05:59 05:59 Intake Total 3329 2836 Output Total 4 Balance 3126 2836 ICD10 Worksheet Patient Problems: Problems Problem Status Diagnosed Pancreatitis Acute
[2016-05-09] MEDS: INSULIN REGULAR HUMAN 100 UNIT/ML SC SCH ×3 (11:35→20:34)
[2016-05-09] MEDS: NS 1,000 ML IV SCH (22:51)
[2016-05-10] MEDS: HYDROmorphONE/DILAUDID 1 MG/ML SYR IVP PRN ×2 (01:57→21:07)
[2016-05-10 05:12] LABS: IONIZED CALCIUM 1.09 MMOL/L (1.12-1.30)
[2016-05-10 05:18] LABS: % IMMATURE GRANULYOCYTES 1.7 % (0.0-1.1); ABSOLUTE IMMATURE GRANULOCYTES 0.13 10^3/uL (0.00-0.10); ADD DIFF? NO; ADD MORPH? NO; ADD SCAN? NO; ATYPICAL LYMPHOCYTE FLAG 20 (0-99); FRAGMENT RBC FLAG 0 (0-99); HEMOGLOBIN 9.9 g/dL (12.6-16.3); LEFT SHIFT FLG 20 (0-99); LIPEMIA HEMOLYSIS FLAG 90 (0-99); MEAN CELL HEMOGLOBIN 29.7 pg (27.9-34.1); MEAN CELL HEMOGLOBIN CONCENTR. 34.1 g/dL (32.4-36.7); MEAN CELL VOLUME 87.1 fL (81.5-99.8); MEAN PLATELET VOLUME 10.2 fL (8.7-11.7); PLATELET CLUMPS FLAG 0 (0-99); PLATELET COUNT 211 10^3/uL (150-400); RED BLOOD CELL COUNT 3.33 10^6/uL (4.18-5.33); RED CELL DISTRIBUTION WIDTH 13.5 % (11.5-15.2)
[2016-05-10 05:31] LABS: ANION GAP 7 mEq/L (8-16); CALCIUM 7.8 mg/dL (8.5-10.4); CARBON DIOXIDE 28 mEq/l (22-31); CHLORIDE 103 mEq/L (97-110); CREATININE 0.6 mg/dL (0.6-1.0); GLOMERULAR FILTRATION RATE > 60; GLUCOSE 98 mg/dL (70-100); POTASSIUM 3.4 mEq/L (3.5-5.2); SODIUM 138 mEq/L (134-144)
[2016-05-10 05:39] LABS: TRIGLYCERIDE 685 mg/dL (35-135)
[2016-05-10] MEDS: HEPARIN 5,000 UNIT/0.5 ML SYR SC SCH ×3 (06:02→21:03)
[2016-05-10] MEDS: HYDROmorphONE/DILAUDID 2 MG TAB PO PRN ×4 (06:03→16:42)
[2016-05-10] MEDS ORDERED: CALCIUM GLUCONATE 50 ML IV ONE (07:43)
[2016-05-10] MEDS: INSULIN REGULAR HUMAN 100 UNIT/ML SC SCH ×4 (07:48→21:44)
[2016-05-10] MEDS: GEMFIBROZIL 600 MG TAB PO SCH ×2 (08:04→16:43)
--- NOTE | 2016-05-10 08:37 | HOSPPROG ---
Hospitalist Progress Note Assessment/Plan: #Acute pancreatitis: 2/ #Hypertriglyceridemia -TGs today 685; goal is <500. Cont Gemfibrozil, IV insulin #Hypocalcemia -repleting. On protocol #Acute abdominal pain -much improved #Acute hypoxic resp failure -due to abd distension, atelectasis. Cont IS and wean as tolerate #Normocytic anemia -H/H stable #Leukocytosis -resolved #DVT ppx: SQH #Diet: advance to low fat today #Deconditioning: PT/OT. Out of bed to chair #Disp: warrants inpt admission with cont hypocalcemia, pain Subjective: feeling good today. No nausea with clear diet Objective: Vital Signs Temp Pulse Resp BP Pulse Ox 37.7 C 94 16 107/70 93 05/10/16 07:40 05/10/16 07:40 05/10/16 07:40 05/10/16 07:40 05/10/16 07:40 Laboratory Results 05/10/16 04:10 05/10/16 04:10 05/09/16 05/10/16 05/11/16 05:59 05:59 05:59 Intake Total 2836 1625 Balance 2836 1625 - Physical Exam Constitutional: no apparent distress, obese Eyes: PERRL Ears, Nose, Mouth, Throat: moist mucous membranes Cardiovascular: regular rate and rhythym, no murmur, rub, or gallop Respiratory: no respiratory distress, no rales or rhonchi Gastrointestinal: normoactive bowel sounds, tenderness (mild LUQ TTP, quiet bowel sounds) Skin: warm Musculoskeletal: full muscle strength Neurologic: AAOx3 Psychiatric: interacting appropriately ICD10 Worksheet Patient Problems: Problems Problem Status Diagnosed Pancreatitis Acute
[2016-05-10] MEDS: FAMOTIDINE 20 MG/NACL 50 ML IV SCH ×2 (09:42→21:04)
[2016-05-10] MEDS: NS 1,000 ML IV SCH ×2 (09:42→21:04)
[2016-05-11] MEDS: HYDROmorphONE/DILAUDID 2 MG TAB PO PRN ×7 (00:29→23:00)
[2016-05-11 04:28] LABS: IONIZED CALCIUM 1.11 MMOL/L (1.12-1.30)
[2016-05-11 04:29] LABS: HEMATOCRIT 27.1 % (38.0-47.0); HEMOGLOBIN 9.4 g/dL (12.6-16.3); MEAN CELL HEMOGLOBIN 29.7 pg (27.9-34.1); MEAN CELL HEMOGLOBIN CONCENTR. 34.7 g/dL (32.4-36.7); MEAN CELL VOLUME 85.8 fL (81.5-99.8); RED BLOOD CELL COUNT 3.16 10^6/uL (4.18-5.33); RED CELL DISTRIBUTION WIDTH 13.3 % (11.5-15.2)
[2016-05-11 04:53] LABS: ANION GAP 7 mEq/L (8-16); CALCIUM 7.9 mg/dL (8.5-10.4); CARBON DIOXIDE 28 mEq/l (22-31); CHLORIDE 102 mEq/L (97-110); CREATININE 0.6 mg/dL (0.6-1.0); GLOMERULAR FILTRATION RATE > 60; GLUCOSE 100 mg/dL (70-100); POTASSIUM 3.4 mEq/L (3.5-5.2); SODIUM 137 mEq/L (134-144)
[2016-05-11] MEDS: HEPARIN 5,000 UNIT/0.5 ML SYR SC SCH ×3 (05:03→21:13)
[2016-05-11 05:10] LABS: TRIGLYCERIDE 556 mg/dL (35-135)
[2016-05-11] MEDS: GEMFIBROZIL 600 MG TAB PO SCH ×2 (06:29→18:20)
[2016-05-11] MEDS: NS 1,000 ML IV SCH (06:29)
[2016-05-11] MEDS: INSULIN REGULAR HUMAN 100 UNIT/ML SC SCH ×4 (07:39→21:13)
[2016-05-11] MEDS: FAMOTIDINE 20 MG/NACL 50 ML IV SCH (07:48)
--- NOTE | 2016-05-11 08:08 | HOSPPROG ---
Hospitalist Progress Note Assessment/Plan: #Acute pancreatitis: 06/03 #Hypertriglyceridemia -TGs 566 today. goal is <500. Cont Gemfibrozil, IV insulin -nutrition consult today #Hypocalcemia -repleting. On protocol #Acute abdominal pain -much improved. Using orals and tolerating low-fat diet #Acute hypoxic resp failure -due to abd distension, atelectasis. Cont IS and wean as tolerate #Normocytic anemia -H/H stable #Leukocytosis -resolved #DVT ppx: SQH #Diet: low-fat diet #Deconditioning: PT/OT. Out of bed to chair #Disp: warrants inpt admission with cont hypocalcemia, pain. Hope to DC in 1-2 days if electrolytes normalized Subjective: no nausea with low-fat diet. Mild left flank pain Objective: Vital Signs Temp Pulse Resp BP Pulse Ox 37.2 C 87 18 124/78 H 96 05/11/16 08:00 05/11/16 08:00 05/11/16 08:00 05/11/16 08:00 05/11/16 08:00 Laboratory Results 05/11/16 04:18 05/11/16 04:18 05/10/16 05/11/16 05/12/16 05:59 05:59 05:59 Intake Total 1625 1650 Balance 1625 1650 - Physical Exam Constitutional: obese, other (smiling, sitting up in chair) Ears, Nose, Mouth, Throat: moist mucous membranes Cardiovascular: regular rate and rhythym, no murmur, rub, or gallop Respiratory: no respiratory distress, no rales or rhonchi Gastrointestinal: normoactive bowel sounds, soft, non-tender abdomen, tenderness (LUQ and flank. no rebound or guarding. +BS) Genitourinary: no bladder fullness Skin: warm Musculoskeletal: full muscle strength Neurologic: AAOx3 Psychiatric: interacting appropriately ICD10 Worksheet Patient Problems: Problems Problem Status Diagnosed Pancreatitis Acute
[2016-05-11] MEDS ORDERED: CALCIUM GLUCONATE 50 ML IV ONE (10:00)
[2016-05-11] MEDS: FAMOTIDINE 20 MG TAB PO SCH (21:13)
[2016-05-12] MEDS: HEPARIN 5,000 UNIT/0.5 ML SYR SC SCH ×3 (05:30→21:37)
[2016-05-12] MEDS: HYDROmorphONE/DILAUDID 2 MG TAB PO PRN ×6 (05:30→22:23)
[2016-05-12 06:15] LABS: IONIZED CALCIUM 1.11 MMOL/L (1.12-1.30)
[2016-05-12] MEDS: GEMFIBROZIL 600 MG TAB PO SCH ×2 (07:58→17:23)
[2016-05-12] MEDS: FAMOTIDINE 20 MG TAB PO SCH ×2 (07:58→20:26)
[2016-05-12] MEDS: INSULIN REGULAR HUMAN 100 UNIT/ML SC SCH ×4 (08:00→22:42)
--- NOTE | 2016-05-12 08:21 | HOSPPROG ---
Hospitalist Progress Note Assessment/Plan: #Acute pancreatitis: 2/ #Hypertriglyceridemia -goal is <500. Cont Gemfibrozil, not requiring SSI at this time #Hypocalcemia -near normal #Acute abdominal pain -much improved. Using orals and tolerating low-fat diet #Acute hypoxic resp failure -due to abd distension, atelectasis. Cont IS and wean as tolerate. #Normocytic anemia -H/H stable #Leukocytosis -resolved #DVT ppx: SQH #Diet: low-fat diet #Deconditioning: PT/OT. Out of bed to chair #Disp: plan for DC in morning if labs stable Subjective: feeling better, mild left flank pain Objective: Vital Signs Temp Pulse Resp BP Pulse Ox 36.8 C 82 18 109/83 H 93 05/12/16 07:38 05/12/16 07:38 05/12/16 07:38 05/12/16 07:38 05/12/16 07:38 Laboratory Results 05/11/16 04:18 05/11/16 04:18 05/11/16 05/12/16 05/13/16 05:59 05:59 05:59 Intake Total 1650 500 Balance 1650 500 - Physical Exam Constitutional: no apparent distress, obese Eyes: PERRL Ears, Nose, Mouth, Throat: moist mucous membranes Cardiovascular: regular rate and rhythym, no murmur, rub, or gallop Respiratory: no respiratory distress, no rales or rhonchi Gastrointestinal: normoactive bowel sounds, other (mild left LLQ and flank pain) Genitourinary: no bladder fullness Musculoskeletal: full muscle strength Neurologic: AAOx3 Psychiatric: interacting appropriately ICD10 Worksheet Patient Problems: Problems Problem Status Diagnosed Pancreatitis Acute
[2016-05-12] MEDS ORDERED: CALCIUM GLUCONATE 50 ML IV ONE (12:38)
[2016-05-12] MEDS ORDERED: MAGNESIUM HYDROXIDE 30 ML UDCUP PO PRN (12:43)
[2016-05-12] MEDS ORDERED: BISACODYL 10 MG SUPP PR PRN (12:43)
[2016-05-12] MEDS ORDERED: POLYETHYLENE GLYCOL 3350 17 GM PKT PO PRN (12:43)
[2016-05-12] MEDS ORDERED: LACTULOSE 20 GM/30 ML UDCUP PO PRN (12:43)
[2016-05-12] MEDS ORDERED: SENNOSIDES/DOCUSATE SODIUM TAB PO ONE (13:04)
[2016-05-12] MEDS: SENNOSIDES/DOCUSATE SODIUM TAB PO SCH ×2 (13:07→20:26)
[2016-05-12 22:18] VITALS: TEMP 97.9
[2016-05-13 04:22] LABS: IONIZED CALCIUM 1.13 MMOL/L (1.12-1.30)
[2016-05-13 04:47] LABS: ANION GAP 10 mEq/L (8-16); CALCIUM 8.3 mg/dL (8.5-10.4); CARBON DIOXIDE 27 mEq/l (22-31); CHLORIDE 101 mEq/L (97-110); CREATININE 0.7 mg/dL (0.6-1.0); GLOMERULAR FILTRATION RATE > 60; GLUCOSE 110 mg/dL (70-100); POTASSIUM 3.6 mEq/L (3.5-5.2); SODIUM 138 mEq/L (134-144)
[2016-05-13 05:26] LABS: TRIGLYCERIDE 562 mg/dL (35-135)
[2016-05-13] MEDS: HYDROmorphONE/DILAUDID 2 MG TAB PO PRN ×2 (06:04→09:33)
[2016-05-13] MEDS: HEPARIN 5,000 UNIT/0.5 ML SYR SC SCH (06:04)
[2016-05-13 07:55] VITALS: BP 124/93; PULSE 85; RESP 16; O2SAT 92
[2016-05-13] MEDS: INSULIN REGULAR HUMAN 100 UNIT/ML SC SCH (08:06)
[2016-05-13] MEDS: FAMOTIDINE 20 MG TAB PO SCH (08:16)
[2016-05-13] MEDS: GEMFIBROZIL 600 MG TAB PO SCH (08:16)
[2016-05-13] MEDS: SENNOSIDES/DOCUSATE SODIUM TAB PO SCH (08:22)
--- NOTE | 2016-05-13 09:05 | GDS ---
[f rep st] DISCHARGE SUMMARY DISCHARGE DIAGNOSES: 1. Acute pancreatitis secondary to hypertriglyceridemia. 2. Hypocalcemia. 3. Acute abdominal pain. 4. Acute hypoxic respiratory failure. 5. Normocytic anemia. 6. Leukocytosis. CONSULTATIONS: Dr. Escalona with Endocrinology. HISTORY OF PRESENT ILLNESS: The patient is a pleasant 50-year-old female with no significant past medical history, presenting with abdominal pain and vomiting the day of admission. She ate pizza the day prior and had an unsettled stomach. Went to bed thinking symptoms would improve. She awoke the next morning with nonbloody emesis, approximately 6-7 times. She denied any diarrhea, fevers, chills or sweats. She did report having a history of hypertriglyceridemia, which runs in her family. She has had her gallbladder removed. HOSPITAL COURSE BY PROBLEM: 1. Acute pancreatitis due to hypertriglyceridemia. Triglycerides were greater than 3000 on admission with a cholesterol of 647. She had a history of cholecystectomy. There was no evidence of stone on ultrasound. She was treated supportively with IV fluids, IV opioids and IV antiemetics. Treatment of the triglycerides was with gemfibrozil and IV insulin. There was no evidence of hypothyroidism or nephrotic syndrome. Her triglycerides today are 556. She is not requiring insulin at this time with an A1c of 5.5. She is tolerating p.o. intake without issue and having bowel movements. 2. Hypertriglyceridemia: Again, continue gemfibrozil. She is to follow up with Dr. Escalona as an outpatient. 3. Acute abdominal pain secondary to pancreatitis. This is much improved. She will be discharged on a small amount of Dilaudid. 4. Hypovolemic hyponatremia. This was secondary to emesis and decreased p.o. intake. This resolved with IV fluids. 5. Metabolic anion gap acidosis: Secondary to starvation, ketoacidosis. Resolved with IV fluids. 6. Leukocytosis: Stress inflammation. There was no evidence of infection on UA or abscess on imaging. This has since resolved. 7. Acute hypoxemic respiratory failure: now resolved. Secondary to atelectasis and splinting with abdominal pain. 8. Obesity. Patient was counseled on exercise and diet. Nutrition provided consultation while she was here. 9. Hypocalcemia: Patient warranted daily calcium supplementation secondary to pancreatitis. This has since resolved. DISPOSITION: Patient is stable for discharge. MEDICATIONS: See medication reconciliation. FOLLOWUP: 1. PCP. 2. Repeat triglycerides. 3. Dr. Escalona. /[id number]/MODL MTDD
== END 2016-05-13 10:12 | disposition home or self-care (01) | DRG 438 ==
LOC: OBSVTOIN 19:43 → F3E 19:51 → F2N 05-06 10:27 → F3E 05-09 12:57
PROVIDERS: ADMIT Internal Medicine; ATTEND Internal Medicine
DX: K85.90 Acute pancreatitis without necrosis or infection, unspecified (principal); J96.01 Acute respiratory failure with hypoxia; E87.1 Hypo-osmolality and hyponatremia; E87.2 Acidosis; E78.1 Pure hyperglyceridemia; E86.1 Hypovolemia; E83.51 Hypocalcemia; D64.9 Anemia, unspecified; E66.9 Obesity, unspecified; Z80.3 Family history of malignant neoplasm of breast
CPT/HCPCS: 96374; J0610; J1170; J1815; J2405